=== PATIENT | male | born 1985 | race African-American/Black ===

== ENCOUNTER 2024-10-10 17:39 | Emergency (ER) | payer MEDICAID ==
[~2024-10-10] VITALS: Ht 175.3 cm; Wt 82.0 kg
[2024-10-10 18:24] VITALS: TEMP 98.2; O2SAT 97
[2024-10-10] MEDS ORDERED: IBUP-2029 MT (19:36)
[2024-10-10] MEDS ORDERED: FAMO-135 MT (19:36)
[2024-10-10 20:14] VITALS: BP 129/74; PULSE 83; RESP 15; O2SAT 98
== END 2024-10-10 20:15 | disposition home or self-care (01) ==
LOC: ER 17:57
DX: M79.89 Other specified soft tissue disorders (principal)
CPT/HCPCS: 73120; 99283